=== PATIENT | male | born 2000 | race Caucasian/White ===

== ENCOUNTER 2018-06-05 16:52 | Emergency (ER) | payer OTHER ==
[~2018-06-05] VITALS: Ht 157.5 cm; Wt 75.1 kg
[2018-06-05 17:00] VITALS: Ht 157.5 cm; Wt 75.1 kg
[2018-06-05] MEDS ORDERED: LORA10TA3 PO (21:03)
[2018-06-05] MEDS ORDERED: FAMO-96 PO (21:15)
--- NOTE | 2018-06-05 21:24 | ERD ---
ER Documentation Chief Complaint Chief Complaint cough x 1 week; pt not in distress HPI 17-year-old male presents with complaint of cough for the past week. States that the cough is worse in the morning when he wakes up. Also states that he has some postnasal drip. Not taking any treatments. Patient denies fever, night sweats, weight loss, fatigue, hemoptysis, wheezing, dyspnea, pleuritic chest pain, or orthopnea. Denies past medical history. Denies allergies. Denies medications. Denies surgeries. Denies alcohol, tobacco, or drug use. Up-to-date on vaccines ROS All systems reviewed and are negative except as per history of present illness. Medications Home Meds Active Scripts Famotidine* (Pepcid*) 20 Mg Tablet, 20 MG PO BID for GERD for 14 Days, TAB Prov:JENNIFER MARTIN 06/05/18 Loratadine* (Loratadine*) 10 Mg Tablet, 10 MG PO DAILY for allergies, #30 TAB Prov:JENNIFER MARTIN 06/05/18 Allergies Allergies: Coded Allergies: No Known Allergy (Unverified , 07/20/11) PMhx/Soc History of Surgery: No Anesthesia Reaction: No Hx Neurological Disorder: No Hx Respiratory Disorders: No Hx Cardiac Disorders: No Hx Psychiatric Problems: No Hx Miscellaneous Medical Probl: No Hx Alcohol Use: No Hx Substance Use: No Hx Tobacco Use: No Smoking Status: Never smoker FmHx Family History: No diabetes, No coronary disease, No other Physical Exam Vitals Vital Signs Date Temp Pulse Resp B/P (MAP) Pulse Ox O2 O2 Flow FiO2 Time Delivery Rate 06/05/18 99.2 79 20 141/68 97 17:00 (92) Physical Exam Const: No acute distress Head: Atraumatic Eyes: Normal Conjunctiva ENT: Normal External Ears, Nose and Mouth. Neck: Full range of motion. No meningismus. Resp: Clear to auscultation bilaterally Cardio: Regular rate and rhythm, no murmurs Abd: Soft, non tender, non distended. Normal bowel sounds Skin: No petechiae or rashes Back: No midline or flank tenderness Ext: No cyanosis, or edema Neur: Awake and alert Psych: Normal Mood and Affect Procedures/MDM 17-year-old male presents with complaint of cough for the past week. States that the cough is worse in the morning when he wakes up. Also states that he has some postnasal drip. Not taking any treatments. Patient denies fever, night sweats, weight loss, fatigue, hemoptysis, wheezing, dyspnea, pleuritic chest pain, or orthopnea. Denies past medical history. Denies allergies. Denies medications. Denies surgeries. Denies alcohol, tobacco, or drug use. Patient's presentation is consistent with either allergic rhinitis versus GERD. Patient given trial of loratadine and Pepcid to see which one improves his symptoms. I have low suspicion for tubercolosis, pneumonia, pleural effusion, acute heart failure, foreign body aspiration, pulmonary embolism, pneumothorax, or other emergent etiology. Patients O2 sat is normal and is not having difficulty breathing, therefore patient is fit for discharge. Patient and advised to follow up with PMD. Patient discharged with strict ER precautions. All questions answered at discharge. Departure Diagnosis: Primary Impression: Cough Condition: Stable Patient Instructions: Cough, Chronic, Uncertain Cause, (Adult), Seasonal Allergy Referrals: EL GRIS HARLEY (PCP) Additional Instructions: FOLLOW UP WITH YOUR PRIMARY CARE PHYSICIAN TOMORROW.Return to this facility if you are not improving as expected. Your cough is probably due to allergies so try taking the loratadine and see if it improves. If it does not, then your cough may be due to GERD and taking the pepcid should improve symptoms. JENNIFER MARTIN Jun 05, 2018 21:24
[2018-06-05 21:28] VITALS: BP 129/74; PULSE 78; RESP 19
== END 2018-06-05 21:30 | disposition home or self-care (01) ==
LOC: FTE 16:52
DX: R05 Cough (principal)
CPT/HCPCS: 99283